=== PATIENT | male | born 2000 | race Caucasian/White ===

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

== ENCOUNTER 2019-11-17 00:16 | Emergency (ER) | payer OTHER ==
[~2019-11-17] VITALS: Ht 185.4 cm; Wt 160.0 kg
[2019-11-17 01:00] LABS: BASOPHILS % (AUTO) 1 % (0-1); EOSINOPHILS # (AUTO) 0.45 x10^3/uL (0-0.4); EOSINOPHILS % (AUTO) 4 % (1-7); LYMPHOCYTES # (AUTO) 3.91 x10^3/uL (1-3.4); LYMPHOCYTES % (AUTO) 38 % (22-44); MD NO; MEAN CORPUSCULAR HEMOGLOBIN 29.6 pg (27.5-34.5); MEAN CORPUSCULAR VOLUME 87.1 fL (81-97); MEAN PLATELET VOLUME 7.6 fL (7.4-10.4); MONOCYTES # (AUTO) 0.66 x10^3/uL (0.2-0.8); MONOCYTES % (AUTO) 6 % (2-9); NEUTROPHILS # (AUTO) 5.21 x10^3/uL (1.8-6.8); NEUTROPHILS % (AUTO) 51 % (42-75); PLATELET COUNT 385 x10^3/uL (130-400); RED BLOOD COUNT 5.74 x10^6/uL (4.38-5.82); RED CELL DISTRIBUTION WIDTH 12.9 % (9.4-14.8)
[2019-11-17 01:11] LABS: ALBUMIN 4.1 g/dL (3.4-5.0); ANION GAP 5 mmol/L (5-15); CALCIUM 8.7 mg/dL (8.5-10.1); CHLORIDE 109 mmol/L (98-107); CREATININE 1.22 mg/dL (0.7-1.3)
[2019-11-17] MEDS ORDERED: DIPHENHYDRAMINE 25 MG CAPSULE PO ONE (02:30)
[2019-11-17] MEDS ORDERED: PROCHLORPERAZINE 5 MG TABLET PO ONE (02:30)
[2019-11-17] MEDS ORDERED: DIPHENHYDRAMINE 25 MG CAPSULE ONE (02:37)
[2019-11-17] MEDS ORDERED: PROCHLORPERAZINE 10MG TABLET ONE (02:37)
[2019-11-17 03:08] VITALS: BP 129/74
== END 2019-11-17 03:10 ==
LOC: ED 03:04
DX: G43.109 Migraine with aura, not intractable, without status migrainosus (principal); R00.2 Palpitations; F41.1 Generalized anxiety disorder; R00.0 Tachycardia, unspecified; R07.89 Other chest pain; R42 Dizziness and giddiness
CPT/HCPCS: 36415; 71046; 80048; 82040; 85025; 85379; 93005; 99285; Q0163; Q0164

== ENCOUNTER 2020-07-03 17:37 | Emergency (ER) | payer OTHER ==
[~2020-07-03] VITALS: Ht 185.4 cm; Wt 159.0 kg
--- NOTE | 2020-07-03 18:25 | NUR ---
COUGHING UP BLOOD, INCREASE WHEEZING AND SOB. HAD COVID-21 MAR 2020. PT IN BED IN GOWN WITH [employer], SPO2, BP Q 30 MIN, SIDE RAILS UP X2, CALL LIGHT IN REACH.
--- NOTE | 2020-07-03 18:47 | NUR ---
GAVE REPORT TO AROLDO PAINTING
--- NOTE | 2020-07-03 19:00 | NUR ---
REPORT FROM GIANCARLO PAINTING. LAB AT BEDSIDE. PT RESTING WITH NO NEEDS AT THIS TIME. CALL LIGHT IN REACH
[2020-07-03 19:10] LABS: BASOPHILS % (AUTO) 1 % (0-1); EOSINOPHILS % (AUTO) 2 % (1-7); LYMPHOCYTES % (AUTO) 26 % (22-44); MEAN CORPUSCULAR HEMOGLOBIN 29.5 pg (27.5-34.5); MEAN CORPUSCULAR HGB CONC 34.5 g/dL (33.2-36.2); MEAN PLATELET VOLUME 7.9 fL (7.4-10.4); MONOCYTES % (AUTO) 8 % (2-9); NEUTROPHILS % (AUTO) 63 % (42-75); PLATELET COUNT 359 x10^3/uL (130-400); RED BLOOD COUNT 5.76 x10^6/uL (4.38-5.82)
[2020-07-03 19:18] LABS: ALBUMIN 3.9 g/dL (3.4-5.0); ANION GAP 2 mmol/L (5-15); CALCIUM 8.8 mg/dL (8.5-10.1); CHLORIDE 108 mmol/L (98-107); CREATININE 1.13 mg/dL (0.7-1.3)
[2020-07-03 19:22] LABS: TROPONIN I < 0.015 ng/mL (0.000-0.045)
[2020-07-03 19:30] LABS: MD NO
--- NOTE | 2020-07-03 20:30 | NUR ---
PT RESTING . ALL LABS RETURNED. VSS. PT UP FOR REEVAL
[2020-07-03 21:39] VITALS: BP 127/62
== END 2020-07-03 22:19 | disposition home or self-care (01) ==
LOC: ED 22:09
DX: J20.9 Acute bronchitis, unspecified (principal); R04.2 Hemoptysis
CPT/HCPCS: 36415; 71045; 80048; 82040; 83605; 84484; 85025; 85379; 85730; 87040; 93005; 99285